=== PATIENT | female | born 1950 | race Caucasian/White ===

== ENCOUNTER 2021-06-20 07:53 | Emergency (ER) | payer SELFPAY ==
[~2021-06-20] VITALS: Ht 154.9 cm; Wt 55.0 kg
[2021-06-20 10:05] LABS: BASOPHILS % 0.2 % (0.0-2.0); EOSINOPHILS % 0.4 % (0.0-5.0); HEMATOCRIT. 39.6 % (36.0-48.0); HEMOGLOBIN. 13.3 g/dL (12.0-16.0); MEAN CORPUSCULAR HEMOGLOBIN 26.5 pg (28.0-32.0); MEAN CORPUSCULAR VOLUME 79.2 fL (81.0-99.0); MEAN PLATELET VOLUME 7.4 fl (7.4-10.4); MONOCYTES % 7.9 % (2.0-8.0); NEUTROPHILS % 65.5 % (40.0-76.0); PLATELET 368 x1000/uL (130-400); RED BLOOD CELL COUNT 5.01 mill/uL (4.2-5.4); RED CELL DISTRIBUTION WIDTH 14.8 % (11.6-14.6)
[2021-06-20 10:11] LABS: CHLORIDE 109 mEq/L (98-107)
[2021-06-20 11:30] VITALS: BP 126/72
== END 2021-06-20 11:34 | disposition home or self-care (01) ==
LOC: ER 07:53
DX: U07.1 COVID-19 (principal); J20.8 Acute bronchitis due to other specified organisms; I10 Essential (primary) hypertension
CPT/HCPCS: 36415; 71045; 80053; 82962; 83880; 84484; 85025; 93005; 99285; C9803; U0003; U0005